=== PATIENT | female | born 1975 | race Caucasian/White ===

== ENCOUNTER 2020-09-16 13:13 | Emergency (ER) | payer OTHER ==
[~2020-09-16] VITALS: Ht 172.7 cm; Wt 79.8 kg
[2020-09-16] MEDS ORDERED: MONTELUKAST SOD10 MG PO (13:33)
[2020-09-16] MEDS ORDERED: KETO10TA2 PO (18:30)
[2020-09-16] MEDS ORDERED: NORFLEX100MG PO (18:30)
== END 2020-09-16 19:16 | disposition home or self-care (01) ==
LOC: ER 13:13
DX: S40.012A Contusion of left shoulder, initial encounter (principal); S50.12XA Contusion of left forearm, initial encounter; V49.9XXA Car occupant (driver) (passenger) injured in unspecified traffic accident, initial encounter; Y93.89 Activity, other specified; Y92.488 Other paved roadways as the place of occurrence of the external cause; Y99.8 Other external cause status